=== PATIENT | female | born 1985 | race Caucasian/White ===

== ENCOUNTER 2022-09-06 05:35 | Emergency (ER) | payer OTHER ==
[~2022-09-06] VITALS: Ht 175.3 cm; Wt 108.9 kg
[2022-09-06 05:35] VITALS: BP 132/87
--- NOTE | 2022-09-06 05:35 | NUR ---
PT BIB [facility], PREBOOK. TAKEN TO CHAIR
[2022-09-06 05:45] VITALS: BP 132/87
--- NOTE | 2022-09-06 05:48 | NUR ---
Dr. Chapa examining patient.
--- NOTE | 2022-09-06 05:52 | NUR ---
Patient D/C to custody.
== END 2022-09-06 05:52 ==
LOC: MED 05:35
DX: R06.02 Shortness of breath (principal); Z02.89 Encounter for other administrative examinations; V89.2XXA Person injured in unspecified motor-vehicle accident, traffic, initial encounter; Y93.89 Activity, other specified; Y92.89 Other specified places as the place of occurrence of the external cause; Y99.8 Other external cause status
CPT/HCPCS: 99283